=== PATIENT | female | born 1940 | race Caucasian/White ===

== ENCOUNTER 2016-09-10 13:18 | Inpatient (IN) | payer MEDICARE, OTHER ==
[~2016-09-10] VITALS: Ht 170.2 cm; Wt 94.6 kg
[~2016-09-10 13:18] MED LIST: GLUCOPHAGE1000 MG PO; SYNTHROID0.05 MG/TA PO
[2016-09-10 14:22] LABS: ADJUSTED CALCIUM 8.8 mg/dL (8.4-10.2); ALBUMIN 3.3 gm/dL (3.5-5.0); BILIRUBIN,TOTAL 0.8 mg/dL (0.0-1.0); CALCIUM 8.2 mg/dL (8.4-10.2); CREATININE, serum 1.18 mg/dL (0.52-1.25); POTASSIUM 4.1 mmol/L (3.4-5.0); TOTAL PROTEIN 6.6 gm/dL (6.4-8.2)
[2016-09-10 14:30] LABS: TROPONIN-I 0.029 ng/mL (0.000-0.034)
[2016-09-10 16:10] LABS: PH 5 (5-8); SQUAMOUS EPITHELIAL 0-2 /hpf; URINE APPEARANCE Turbid; URINE BACTERIA Moderate /hpf; URINE BILIRUBIN Negative (NEGATIVE); URINE BLOOD 1+ (NEGATIVE); URINE GLUCOSE 2+ (NEGATIVE); URINE KETONE Trace (NEGATIVE); URINE UROBILINOGEN Negative (NEGATIVE)
[2016-09-10 16:12] LABS: URINE COLOR Yellow; URINE WBC >50 /hpf
[2016-09-10 16:49] LABS: MEAN CELL VOLUME 110 fl (80.0-100.0); MEAN CORPUSCULAR HGB CONC 34 g/dl (33.0-37.0); MEAN PLATELET VOLUME 9.7 fl (7.4-10.4); PLATELET COUNT 167 K/mm3 (130-400); RED BLOOD COUNT 1.67 M/mm3 (4.10-5.30); REDCELL DISTRIBUTION WIDTH-CV 15.6 % (11.5-14.5); WHITE BLOOD COUNT 10.1 K/mm3 (4.8-10.8)
[2016-09-10 16:53] LABS: HEMATOCRIT 18.4 % (37.0-47.0); HEMOGLOBIN 6.2 g/dl (12.5-16.0); MEAN CORPUSCULAR HEMOGLOBIN 37 pg (27.0-31.0)
[2016-09-10] MEDS ORDERED: NEURONTIN400 MG/CAP PO (17:10)
[2016-09-10] MEDS ORDERED: COZAAR 50MG50 MG/TAB PO (17:12)
[2016-09-10] MEDS ORDERED: ASPIRIN 81M81 MG/TA2 PO (17:12)
[2016-09-10] MEDS ORDERED: PLAVIX 75MG TAB75 MG PO (17:12)
[2016-09-10] MEDS ORDERED: NITRO-DUR0.4 MG/PAT TD (17:13)
[2016-09-10] MEDS ORDERED: LOPRESSOR 550 MG/TAB PO (17:13)
[2016-09-10 17:57] VITALS: BP 150/60; BP 157/60; PULSE 110; TEMP 103
[2016-09-10] MEDS ORDERED: SYNTHROID0.075 MG/T PO (18:11)
[2016-09-10 18:27] LABS: BAND 6 % (0-10); METAMYELOCYTE 1 % (0-0); NEUTROPHILS 73 % (42.0-75.2); TOTAL CELLS COUNTED 100
[2016-09-10 18:28] LABS: ANISOCYTOSIS 1+; PLATELET ESTIMATE NORMAL (NORMAL)
[2016-09-10 18:31] LABS: DOHLE BODIES PRESENT; OVALOCYTES 1+; POLYCHROMASIA 2+; TEAR DROP CELLS 1+; TOXIC GRANULATION PRESENT
[2016-09-10 18:32] LABS: ADD PATHOLOGY DIFF REVIEW YES
[2016-09-10 19:30] VITALS: BP 175/80; PULSE 125; TEMP 103
[2016-09-10 22:45] VITALS: BP 133/45; PULSE 102; TEMP 101.9
[2016-09-11] VITALS (12 sets, daily range): BP systolic 122–173; BP diastolic 48–78; PULSE 75–120; TEMP 97.9–103.8
[2016-09-11 08:35] LABS: MEAN CORPUSCULAR HGB CONC 34 g/dl (33.0-37.0); MEAN PLATELET VOLUME 9.6 fl (7.4-10.4); PLATELET COUNT 141 K/mm3 (130-400); RED BLOOD COUNT 1.96 M/mm3 (4.10-5.30); REDCELL DISTRIBUTION WIDTH-CV 18.3 % (11.5-14.5); WHITE BLOOD COUNT 8.2 K/mm3 (4.8-10.8)
[2016-09-11 08:37] LABS: ADD PATHOLOGY DIFF REVIEW NO; HEMATOCRIT 20.6 % (37.0-47.0); MEAN CELL VOLUME 105 fl (80.0-100.0); MEAN CORPUSCULAR HEMOGLOBIN 36 pg (27.0-31.0)
[2016-09-11 08:45] LABS: CALCIUM 7.5 mg/dL (8.4-10.2); CREATININE, serum 1.34 mg/dL (0.52-1.25); POTASSIUM 3.6 mmol/L (3.4-5.0)
[2016-09-11 08:48] LABS: PATHOLOGY DIFF REVIEW OK
[2016-09-11 10:26] LABS: BAND 23 % (0-10); DOHLE BODIES PRESENT; METAMYELOCYTE 2 % (0-0); NEUTROPHILS 72 % (42.0-75.2); PLATELET ESTIMATE DECREASED (NORMAL); TOTAL CELLS COUNTED 100; TOXIC GRANULATION PRESENT
[2016-09-11 10:27] LABS: ANISOCYTOSIS 2+; SPHEROCYTE 2+
[2016-09-12 03:16] VITALS: BP 132/54; PULSE 78; TEMP 97.5
[2016-09-12 06:19] LABS: MEAN CELL VOLUME 107 fl (80.0-100.0); MEAN CORPUSCULAR HGB CONC 33 g/dl (33.0-37.0); MEAN PLATELET VOLUME 9.2 fl (7.4-10.4); PLATELET COUNT 131 K/mm3 (130-400); RED BLOOD COUNT 1.94 M/mm3 (4.10-5.30); REDCELL DISTRIBUTION WIDTH-CV 18.2 % (11.5-14.5); WHITE BLOOD COUNT 6.3 K/mm3 (4.8-10.8)
[2016-09-12 06:29] LABS: HEMATOCRIT 20.7 % (37.0-47.0); HEMOGLOBIN 6.9 g/dl (12.5-16.0); MEAN CORPUSCULAR HEMOGLOBIN 36 pg (27.0-31.0)
[2016-09-12 06:30] LABS: ADD PATHOLOGY DIFF REVIEW NO; CALCIUM 7.4 mg/dL (8.4-10.2); CREATININE, serum 1.14 mg/dL (0.52-1.25); POTASSIUM 3.5 mmol/L (3.4-5.0)
[2016-09-12 07:18] VITALS: BP 192/83; PULSE 87; TEMP 98.7
[2016-09-12 07:25] LABS: MAGNESIUM 1.4 mg/dL (1.6-2.3)
[2016-09-12 07:41] LABS: BAND 8 % (0-10); BASOPHIL 1 % (0-2); METAMYELOCYTE 1 % (0-0); NEUTROPHILS 76 % (42.0-75.2); PLATELET ESTIMATE NORMAL (NORMAL); TOTAL CELLS COUNTED 100
[2016-09-12 11:33] VITALS: BP 164/68; PULSE 91; TEMP 98.2
[2016-09-12 16:55] VITALS: BP 157/103; PULSE 91; TEMP 98.2
[2016-09-12 19:33] VITALS: BP 167/72; PULSE 99; TEMP 99.2
[2016-09-12 23:24] VITALS: BP 148/63; PULSE 79; TEMP 97.6
[2016-09-13 04:59] VITALS: BP 194/95; PULSE 90; TEMP 97.6
[2016-09-13 05:56] LABS: MEAN CELL VOLUME 106 fl (80.0-100.0); MEAN CORPUSCULAR HGB CONC 34 g/dl (33.0-37.0); MEAN PLATELET VOLUME 9.2 fl (7.4-10.4); PLATELET COUNT 149 K/mm3 (130-400); RED BLOOD COUNT 2.11 M/mm3 (4.10-5.30); REDCELL DISTRIBUTION WIDTH-CV 17.5 % (11.5-14.5); WHITE BLOOD COUNT 5.6 K/mm3 (4.8-10.8)
[2016-09-13 05:59] LABS: HEMATOCRIT 22.4 % (37.0-47.0); HEMOGLOBIN 7.6 g/dl (12.5-16.0); MEAN CORPUSCULAR HEMOGLOBIN 36 pg (27.0-31.0)
[2016-09-13 06:00] LABS: ADD PATHOLOGY DIFF REVIEW NO
[2016-09-13 06:05] LABS: CALCIUM 7.7 mg/dL (8.4-10.2); CREATININE, serum 1.04 mg/dL (0.52-1.25); POTASSIUM 3.2 mmol/L (3.4-5.0)
[2016-09-13 06:15] VITALS: BP 166/70
[2016-09-13 06:17] LABS: ANISOCYTOSIS 1+; BAND 28 % (0-10); NEUTROPHILS 50 % (42.0-75.2); PLATELET ESTIMATE NORMAL (NORMAL); TOTAL CELLS COUNTED 100
[2016-09-13 06:18] LABS: ROULEAUX 1+
[2016-09-13 08:40] VITALS: BP 167/83; PULSE 96; TEMP 98.6
[2016-09-13 09:22] LABS: MAGNESIUM 1.3 mg/dL (1.6-2.3)
[2016-09-13] MEDS ORDERED: LASIX 40MG TABL40 MG PO (09:58)
[2016-09-13] MEDS ORDERED: K-DUR20 MEQ PO (10:00)
[2016-09-13] MEDS ORDERED: CIPRO 500MG TA500 MG PO (10:05)
[2016-09-13] MEDS ORDERED: PROTONIX 40MG T40 MG PO (10:06)
[2016-09-13 11:40] VITALS: BP 136/57; PULSE 86; TEMP 98.3
== END 2016-09-13 13:13 | disposition home or self-care (01) | DRG 871 ==
LOC: COL.ER 13:18 → MEDICAL 16:27
PROVIDERS: Emergency Medicine; Physician Assistant
DX: A41.9 Sepsis, unspecified organism (principal); I50.31 Acute diastolic (congestive) heart failure; N39.0 Urinary tract infection, site not specified; E87.1 Hypo-osmolality and hyponatremia; E87.2 Acidosis; I11.0 Hypertensive heart disease with heart failure; E03.9 Hypothyroidism, unspecified; E11.65 Type 2 diabetes mellitus with hyperglycemia; E78.5 Hyperlipidemia, unspecified; I25.10 Atherosclerotic heart disease of native coronary artery without angina pectoris; B96.1 Klebsiella pneumoniae [K. pneumoniae] as the cause of diseases classified elsewhere; D64.9 Anemia, unspecified; Z95.5 Presence of coronary angioplasty implant and graft; Z79.4 Long term (current) use of insulin; Z85.43 Personal history of malignant neoplasm of ovary
CPT/HCPCS: 99223-AI; 99233-AI; 99239; J0696; J1650; J1815; J2405; J3475; J7030; P9016

== ENCOUNTER → 2017-01-31 | Outpatient (CLI) | payer MEDICARE, OTHER ==
[~2017-01-31] MED LIST changes: +ASPIRIN 81M81 MG/TA2 PO; +CIPRO 500MG TA500 MG PO; +COZAAR 50MG50 MG/TAB PO; +K-DUR20 MEQ PO; +LASIX 40MG TABL40 MG PO; +LOPRESSOR 550 MG/TAB PO; +NEURONTIN400 MG/CAP PO; +NITRO-DUR0.4 MG/PAT TD; +PLAVIX 75MG TAB75 MG PO; +PROTONIX 40MG T40 MG PO; +SYNTHROID0.075 MG/T PO
== END ==
LOC: MC.RAD 11:35
DX: Z12.31 Encounter for screening mammogram for malignant neoplasm of breast (principal)

== ENCOUNTER → 2017-02-13 | Outpatient (CLI) | payer MEDICARE, OTHER | LOC: COL.RAD 14:16 | DX: K43.2 Incisional hernia without obstruction or gangrene (principal) | CPT/HCPCS: Q9967 ==

== ENCOUNTER → 2017-07-24 | Outpatient (CLI) | payer MEDICARE, OTHER | LOC: COL.RAD 10:50 | DX: C57.8 Malignant neoplasm of overlapping sites of female genital organs (principal); E11.9 Type 2 diabetes mellitus without complications; Z90.49 Acquired absence of other specified parts of digestive tract; Z95.828 Presence of other vascular implants and grafts | CPT/HCPCS: Q9967 ==

== ENCOUNTER → 2017-08-12 | Outpatient (CLI) | payer MEDICARE, OTHER ==
[~2017-08-12] MED LIST changes: +ASPIRIN E.C. 8181 MG PO; +COZAAR 25MG25 MG/TAB PO; +LANTUS100 U/ML SQ; +MICRO-K 10 EXT10 MEQ PO; +NATURAL IRON65 MG PO; +NOVOLOG 100U100 U/M1 SQ; +TOPROL XL 50MG50 MG PO
== END ==
LOC: COL.RAD 12:20
DX: Z53.8 Procedure and treatment not carried out for other reasons (principal); C57.8 Malignant neoplasm of overlapping sites of female genital organs; E11.9 Type 2 diabetes mellitus without complications

== ENCOUNTER → 2018-09-08 | Outpatient (CLI) | payer MEDICARE, OTHER | LOC: COL.RAD 10:59 | DX: C57.8 Malignant neoplasm of overlapping sites of female genital organs (principal); E11.9 Type 2 diabetes mellitus without complications; Z95.9 Presence of cardiac and vascular implant and graft, unspecified; Z90.49 Acquired absence of other specified parts of digestive tract; Z90.710 Acquired absence of both cervix and uterus | CPT/HCPCS: Q9967 ==

== ENCOUNTER 2018-10-27 15:08 | Emergency (ER) | payer MEDICARE, OTHER ==
[~2018-10-27] VITALS: Ht 167.6 cm; Wt 97.7 kg
[2018-10-27] MEDS ORDERED: LASIX 20MG TABL20 MG PO (15:31)
[2018-10-27 16:28] LABS: MUCOUS Present /lpf; PH 7 (5-8); URINE APPEARANCE Clear; URINE BACTERIA None Seen /hpf; URINE BILIRUBIN Negative (NEGATIVE); URINE BLOOD Negative (NEGATIVE); URINE COLOR Yellow; URINE GLUCOSE 3+ (NEGATIVE); URINE KETONE Negative (NEGATIVE); URINE LEUKOCYTE ESTERASE Negative (NEGATIVE); URINE NITRATE Negative (NEGATIVE); URINE PROTEIN(semi-quant) 1+ (NEGATIVE); URINE RBC 0-2 /hpf; URINE UROBILINOGEN Negative (NEGATIVE); URINE WBC 0-2 /hpf
[2018-10-27 16:33] LABS: ALANINE AMINOTRANSFERASE 8 U/L (9-52); ALBUMIN 3.6 gm/dL (3.5-5.0); ALKALINE PHOSPHATASE 251 U/L (50-136); ANION GAP 8 mmol/L (7-16); AST,SGOT 23 U/L (15-37); BILIRUBIN,TOTAL 0.3 mg/dL (0.0-1.0); BLOOD UREA NITROGEN 10 mg/dL (7-17); CALCIUM 8.2 mg/dL (8.4-10.2); CARBON DIOXIDE 26 mmol/L (22-30); CHLORIDE 99 mmol/L (98-107); CREATININE, serum 0.84 (0.52-1.25); GLUCOSE 278 mg/dL (74-106); POTASSIUM 4.6 mmol/L (3.4-5.0); SODIUM 134 mmol/L (137-145); TOTAL PROTEIN 7.1 gm/dL (6.4-8.2)
[2018-10-27 16:45] LABS: TROPONIN-I < 0.012 ng/mL (0.000-0.035)
[2018-10-27 16:56] LABS: COLLECTION METHOD CLEAN CATCH
[2018-10-27 17:20] VITALS: TEMP 98.4
[2018-10-27] MEDS ORDERED: NORVASC 5MG5 MG/TAB PO (20:59)
[2018-10-27 21:01] LABS: HEMATOCRIT 28.8 % (37.0-47.0); HEMOGLOBIN 9.1 g/dl (12.5-16.0); MEAN CELL VOLUME 91 fl (80.0-100.0); MEAN CORPUSCULAR HEMOGLOBIN 29 pg (27.0-31.0); RED BLOOD COUNT 3.15 M/mm3 (4.10-5.30)
[2018-10-27 21:02] LABS: MEAN CORPUSCULAR HGB CONC 32 g/dl (33.0-37.0); PLATELET COUNT 435 K/mm3 (130-400); REDCELL DISTRIBUTION WIDTH-CV 15.9 % (11.5-14.5)
[2018-10-27 21:04] LABS: ANISOCYTOSIS 1+; BAND 2 % (0-10); LYMPHOCYTE 20 % (20.0-51.0); NEUTROPHILS 60 % (42.0-75.2); NUCLEATED RED BLOOD CELL 1 (0-6); PLATELET ESTIMATE INCREASED (NORMAL); POLYCHROMASIA 1+
[2018-10-27 21:25] VITALS: BP 163/87; PULSE 91
== END 2018-10-27 21:25 | disposition home or self-care (01) ==
LOC: COL.ER 15:08
PROVIDERS: Emergency Medicine
DX: I10 Essential (primary) hypertension (principal); E11.65 Type 2 diabetes mellitus with hyperglycemia; I25.10 Atherosclerotic heart disease of native coronary artery without angina pectoris; I25.2 Old myocardial infarction; E03.9 Hypothyroidism, unspecified; Z90.49 Acquired absence of other specified parts of digestive tract; Z95.5 Presence of coronary angioplasty implant and graft; Z90.710 Acquired absence of both cervix and uterus; Z85.43 Personal history of malignant neoplasm of ovary; Z79.82 Long term (current) use of aspirin; Z79.02 Long term (current) use of antithrombotics/antiplatelets; Z79.4 Long term (current) use of insulin
CPT/HCPCS: J1815; J7030

== ENCOUNTER → 2019-01-06 | Outpatient (CLI) | payer MEDICARE, OTHER ==
[~2019-01-06] MED LIST changes: +LASIX 20MG TABL20 MG PO; +NORVASC 5MG5 MG/TAB PO
== END ==
LOC: MHCPAIN 14:15
DX: G89.29 Other chronic pain (principal); M47.817 Spondylosis without myelopathy or radiculopathy, lumbosacral region; M53.3 Sacrococcygeal disorders, not elsewhere classified; M41.9 Scoliosis, unspecified
CPT/HCPCS: G0463

== ENCOUNTER → 2019-02-05 | Outpatient (CLI) | payer MEDICARE, OTHER | LOC: COL.RAD 12:11 | DX: Z01.812 Encounter for preprocedural laboratory examination (principal); G31.9 Degenerative disease of nervous system, unspecified; G44.89 Other headache syndrome | CPT/HCPCS: A9585 ==

== ENCOUNTER 2019-10-28 19:43 | Inpatient (IN) | payer MEDICARE, OTHER ==
[~2019-10-28] VITALS: Ht 167.6 cm; Wt 104.7 kg
[2019-10-28 21:48] VITALS: BP 131/57; PULSE 88; TEMP 97.7
[2019-10-28] MEDS ORDERED: FERROUS SU325 MG/TAB PO (22:00)
[2019-10-28] MEDS ORDERED: NORCO 325 MG-51 TAB PO (22:02)
[2019-10-28] MEDS ORDERED: LASIX 20MG TABL20 MG PO (22:03)
[2019-10-28] MEDS ORDERED: BONINE25 MG PO (22:04)
[2019-10-28] MEDS ORDERED: LOPRESSOR 550 MG/TAB PO (22:11)
[2019-10-28] MEDS ORDERED: LASIX 40MG TABL40 MG PO (22:14)
[2019-10-28] MEDS ORDERED: MICARDIS20 MG PO (22:15)
[2019-10-28] MEDS ORDERED: ZETIA 10MG TAB10 MG PO (22:15)
[2019-10-28 22:58] VITALS: BP 145/60; PULSE 88; TEMP 97.6
--- NOTE | 2019-10-28 23:29 | NUR ---
Patient arrives from [facility] at 2120 via ambulance. Patient is alert and oriented x3 with mild forgetfulness. Patient states she doesn't remember why she is here. Patient has BLE 2+ with an open blister on the left ankle. Open area is dry and reddened. No other skin issues noted. Patient's abdomen is distented, firm and tender. Normal bowel sounds noted in all quadrants. Patient seems to have a hernia of some sort in the upper center portion of the abdomen, pateint states she know about it. Patient reports no pain at this time, however did request some Tums for indegestion. Patient arrived with 20g IV in the right AC. NS started at 60 mL/hr. Patient afebrile at this time, antibiotics given as ordered. Tele and SCD on at this time. Patient asked to call for assistance when getting up, patient verbalizes understanding.
[2019-10-29 03:05] VITALS: BP 127/56; PULSE 88; TEMP 97.2
[2019-10-29 03:54] LABS: COLLECTION METHOD CLEAN CATCH
[2019-10-29 04:04] LABS: MUCOUS Present /lpf; PH 5 (5-8); SQUAMOUS EPITHELIAL 0-2 /hpf; URINE APPEARANCE Hazy; URINE BACTERIA Rare /hpf; URINE BILIRUBIN Negative (NEGATIVE); URINE BLOOD Negative (NEGATIVE); URINE COLOR Yellow; URINE GLUCOSE Negative (NEGATIVE); URINE KETONE Negative (NEGATIVE); URINE LEUKOCYTE ESTERASE Trace (NEGATIVE); URINE NITRATE Negative (NEGATIVE); URINE PROTEIN(semi-quant) Negative (NEGATIVE); URINE RBC 0-2 /hpf; URINE UROBILINOGEN Negative (NEGATIVE)
[2019-10-29 07:20] VITALS: BP 134/61; PULSE 87; TEMP 97.4
[2019-10-29 07:37] LABS: HEMATOCRIT 33.5 % (37.0-47.0); HEMOGLOBIN 10.8 g/dl (12.5-16.0); MEAN CELL VOLUME 93 fl (80.0-100.0); MEAN CORPUSCULAR HEMOGLOBIN 30 pg (27.0-31.0); MEAN CORPUSCULAR HGB CONC 32 g/dl (33.0-37.0); MEAN PLATELET VOLUME 9.2 fl (7.4-10.4); PLATELET COUNT 421 K/mm3 (130-400); REDCELL DISTRIBUTION WIDTH-CV 14.5 % (11.5-14.5)
[2019-10-29 07:48] LABS: ALBUMIN 2.5 gm/dL (3.5-5.0); CALCIUM 7.8 mg/dL (8.4-10.2); CREATININE, serum 1.41 (0.52-1.25); INR 1.1 (0.8-3.0); MAGNESIUM 1.5 mg/dL (1.6-2.3); POTASSIUM 5.1 mmol/L (3.4-5.0); PROTHROMBIN TIME 12.8 SECONDS (9.7-12.8); TOTAL PROTEIN 5.4 gm/dL (6.4-8.2)
[2019-10-29 08:17] LABS: BILIRUBIN UNCONJUGATED 0.1 mg/dL (0.0-1.1); BILIRUBIN,DIRECT 0.2 mg/dL (0.0-0.4); BILIRUBIN,TOTAL 0.3 mg/dL (0.0-1.0)
[2019-10-29 08:19] LABS: BAND 11 % (0-10); LYMPHOCYTE 8 % (20.0-51.0); NEUTROPHILS 76 % (42.0-75.2); PLATELET ESTIMATE NORMAL (NORMAL)
--- NOTE | 2019-10-29 08:43 | NUR ---
Pt awake and alert upon entry, assisted to bedside commode, no C/O pain at this time. Medications given with sip of water. Shift assessments complete, left Pt call light in reach, bed in lowest position.
[2019-10-29 10:20] LABS: PERITONEAL -POLYMORPHONUCLEAR 43.2 % (0-25); PERITONEAL FLUID RBC 1000 /mm3 (0-0)
--- NOTE | 2019-10-29 11:03 | NUR ---
I met with pt after her paracentesis. She reports that she lives independently but that has children that are easily available to her if she needs anything. Her unexpectedly in July from a brain tumor that they knew nothing about until his . This has been very difficult. 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 She reports that she is not interested in doing advanced directives at this time. She reportedly saw Dr Hinton on 10/26 according to his office notes which showed that her disease was progressing more rapidly. She reports that she doesn't need anymore chemotherapy although believes that Dr Hinton is considering a pill for her to take, if she qualifies. She does report that she enjoys gardening and her home of 25 years but feels it is time to move to an apartment that she can take care of herself--looking at move to [place]. Has 8 grandchildren and enjoys their visits. Also has a dog and a cat which are great support for her. She reports her daughter is coming to visit today. She feels well supported by her family and states they would do anything for her. I am waiting for a call back from the oncology office about her cancer status.
[2019-10-29 11:47] VITALS: BP 119/44; PULSE 73; TEMP 97.8
--- NOTE | 2019-10-29 12:12 | NUR ---
I called daughter, Nicky Rosales @ [phone] to see what the family's understanding of Lexie's cancer and general condition was. Nicky stated that they are trying to get her into [facility] to help with her medication management and general care. The family does not feel that she is able to manage living at home alone. Per Nicky, both she and her sister Chidi, who lives in [place], are both named as DPOA-HC for her mother. Pt has been dealing with stage 4 ovarian cancer for 3 1/2 years and the family is recognizing that her life will not be a whole lot longer. They would consider hospice services in the retirement as a plus. The patient is not necessarily thinking of this as an option and is able to make her own decisions at this time. Contact information was given to Nicky. Daughter did report that an oral chemotherapy drug (lintarza) had been discussed but that with their mother's non compliance with her medications and her use of alcohol--the family does not believe that an oral chemotherapy agent could be handled unless she recieves help with her medication administration. Pt has always been a very independent person and is resistant to taking help from others in her own care.
[2019-10-29 15:40] VITALS: BP 99/63; PULSE 79; TEMP 98.3
--- NOTE | 2019-10-29 16:37 | NUR ---
Human Resources Associate met with the patient and her daughter, Nicky to complete initial intake. The patient lives alone in [facility]. The patient has cane, walker and shower equipment. The patient is indepenent with ADLs. The patient's PCP is Dr. Chakraborty and patient receives medications from [facility] in . The patient has advanced directives completed and designate her daughters, Deann and Chidi. The patient was interested in sending referrals to [facility] and [facility]. Referrals faxed. [facility] will review the referral but cannot take until Friday. The patient will have to go on comfort measures and not taking any cancer treatments. POORNIMA informed Demetra from [facility] regarding the referral. SW attempted to update the patient and the patient's daughter but the patient was sleeping and the daughter was gone. Will continue to follow.
--- NOTE | 2019-10-29 19:24 | NUR ---
Pt rested in the room today, needs X1 assistance to stand, is able to use bedside commode without issue. Has had no C/O pain today. VS have remained stable.
[2019-10-29 19:37] VITALS: BP 135/46; PULSE 93; TEMP 99.2
--- NOTE | 2019-10-29 20:00 | NUR ---
Assessment complete at this time. Patient has no complaints of pain. Abdomen is distended and bilateral lower extremity edema has 2+ pitting. 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 No new concerns, will continue to monitor.
[2019-10-29 22:53] VITALS: BP 131/51; PULSE 88; TEMP 99.3
[2019-10-30] VITALS (7 sets, daily range): BP systolic 106–145; BP diastolic 43–78; PULSE 77–91; TEMP 97.7–98.6
--- NOTE | 2019-10-30 05:29 | NUR ---
Patient has had an uneventful and restful night. No complaints of pain or additional concerns.
[2019-10-30 08:19] LABS: HEMOGLOBIN 10.2 g/dl (12.5-16.0); MEAN CELL VOLUME 91 fl (80.0-100.0); MEAN CORPUSCULAR HEMOGLOBIN 29 pg (27.0-31.0); MEAN CORPUSCULAR HGB CONC 32 g/dl (33.0-37.0); PLATELET COUNT 409 K/mm3 (130-400); RED BLOOD COUNT 3.49 M/mm3 (4.10-5.30); REDCELL DISTRIBUTION WIDTH-CV 14.6 % (11.5-14.5)
[2019-10-30 08:21] LABS: HEMATOCRIT 31.9 % (37.0-47.0)
[2019-10-30 08:33] LABS: ALBUMIN 2.4 gm/dL (3.5-5.0); BILIRUBIN,TOTAL 0.2 mg/dL (0.0-1.0); CREATININE, serum 1.8 (0.52-1.25); MAGNESIUM 2.4 mg/dL (1.6-2.3); POTASSIUM 4.5 mmol/L (3.4-5.0)
[2019-10-30 09:09] LABS: EOSINOPHIL 1 % (0-4); LYMPHOCYTE 13 % (20.0-51.0); NEUTROPHILS 80 % (42.0-75.2)
[2019-10-30 09:11] LABS: PLATELET ESTIMATE INCREASED (NORMAL)
[2019-10-30 09:13] LABS: HYPOCHROMIA 1+
--- NOTE | 2019-10-30 09:21 | NUR ---
Pt awake and alert upon entry, no C/O pain at this time, talkative. Shift assessments complete, left Pt call light in reach, bed in lowest position.
--- NOTE | 2019-10-30 18:35 | NUR ---
Pt resting in the room, no C/O pain throughout the day, VS have remained stable.
--- NOTE | 2019-10-30 20:00 | NUR ---
Assessment complete at this time. Patient has no complaints of pain. 2+ pitting edema is present on bilat lower extremities; shins are reddened and slightly warm. BP is 109/48 at this time and scheduled metoprolol is held. Patient's abdomen is distended and firm. Will continue to monitor.
[2019-10-31] VITALS (7 sets, daily range): BP systolic 109–128; BP diastolic 44–66; PULSE 83–106; TEMP 98–99
[2019-10-31 08:01] LABS: BASO % 0.2 % (0.0-2.0); EOS # 0.1 (0.0-0.7); GRAN # 8.6 (1.4-6.5); GRAN % 72.6 % (42.2-75.2); HEMOGLOBIN 10.7 g/dl (12.5-16.0); LYMPH # 1.6 (1.2-3.4); LYMPH % 13.5 % (20.0-51.0); MEAN CELL VOLUME 91 fl (80.0-100.0); MEAN CORPUSCULAR HEMOGLOBIN 29 pg (27.0-31.0); MEAN CORPUSCULAR HGB CONC 32 g/dl (33.0-37.0); MEAN PLATELET VOLUME 9.2 fl (7.4-10.4); MONO # 1.4 (0.1-0.6); MONO % 11.9 % (1.7-9.3); PLATELET COUNT 443 K/mm3 (130-400); RED BLOOD COUNT 3.68 M/mm3 (4.10-5.30); REDCELL DISTRIBUTION WIDTH-CV 14.6 % (11.5-14.5)
[2019-10-31 08:03] LABS: HEMATOCRIT 33.6 % (37.0-47.0)
[2019-10-31 08:12] LABS: CALCIUM 6.7 mg/dL (8.4-10.2); CREATININE, serum 2.35 (0.52-1.25); POTASSIUM 4.5 mmol/L (3.4-5.0)
--- NOTE | 2019-10-31 09:40 | NUR ---
Pt awake and alert upon entry, no C/O pain at this time. Shift assessments complete, left Pt call light in reach, bed in lowest position.
--- NOTE | 2019-10-31 19:04 | NUR ---
Pt resting in the room today, no C/O pain throughout the day, has had several loose stools today. VS have remained stable.
--- NOTE | 2019-10-31 22:00 | NUR ---
Pt assessment completed and documented. Pt resting in bed with eyes closed when entering room. Pt alert and oriented x4. Denies pain. IVF infusing per orders to right ac IV site. Fall precautions in place. Bed alarm on. Pt denies any other needs at this time. Call light within reach. Will continue to monitor.
[2019-11-01 03:31] VITALS: BP 126/52; PULSE 83; TEMP 98.7
--- NOTE | 2019-11-01 05:19 | NUR ---
Pt has rested well in bed overnight. No complaints of pain. IVF infusing per orders. PT denies any other needs. Call light within reach. Fall precautions in place. Bed alarm on.
[2019-11-01 06:05] LABS: BASO % 0.2 % (0.0-2.0); EOS # 0.2 (0.0-0.7); EOS % 1.3 % (0-4.0); GRAN # 9.4 (1.4-6.5); GRAN % 75.2 % (42.2-75.2); LYMPH # 1.4 (1.2-3.4); LYMPH % 11.1 % (20.0-51.0); MEAN CELL VOLUME 91 fl (80.0-100.0); MEAN CORPUSCULAR HEMOGLOBIN 30 pg (27.0-31.0); MEAN CORPUSCULAR HGB CONC 33 g/dl (33.0-37.0); MEAN PLATELET VOLUME 8.8 fl (7.4-10.4); MONO # 1.4 (0.1-0.6); MONO % 11.6 % (1.7-9.3); PLATELET COUNT 457 K/mm3 (130-400); REDCELL DISTRIBUTION WIDTH-CV 14.3 % (11.5-14.5)
[2019-11-01 06:13] LABS: SODIUM 126 mmol/L (137-145)
[2019-11-01 06:15] LABS: HEMATOCRIT 33.8 % (37.0-47.0)
[2019-11-01 06:16] LABS: ALBUMIN 2.5 gm/dL (3.5-5.0); BILIRUBIN,TOTAL 0.2 mg/dL (0.0-1.0); CALCIUM 6.5 mg/dL (8.4-10.2); CREATININE, serum 2.39 (0.52-1.25); POTASSIUM 4.5 mmol/L (3.4-5.0); TOTAL PROTEIN 5.5 gm/dL (6.4-8.2)
[2019-11-01 06:17] LABS: CREATININE, serum 2.39 (0.52-1.25)
--- NOTE | 2019-11-01 09:22 | NUR ---
Assisted to bedside commode, pt. urinated. Pt. c/o back pain and requested to be adjusted in bed. Pt. was adjusted and said, "That is much better". Call button is in place. Will continue to monitor.
--- NOTE | 2019-11-01 09:25 | NUR ---
Initial visit; Patient thanked Toolmaker Grade Three for looking in on her and offering God's blessings.
--- NOTE | 2019-11-01 10:10 | NUR ---
Treatment team rounded on patient this morning and Dr Mederos talked with pt about her current condition and that she is not likely to get a lot better due to her advanced cancer, liver issues and kidney function decline. Pt again seemed quite surprised but did listen to Dr Mederos who presented continuing aggressive care vs comfort care. Pt is aware that many of her issues will not go away and that aggressive care would have her spending more time in the hospital for more treatment without a true improvement in her quality of life. I stayed and talked with pt after treatment team left. She asked if her girls knew what Dr Mederos had told her and I replyed yes. I reinforced that I had talked with her daughter Chidi this morning and her daughter Nicky on Friday. She is aware that her daughters have been looking at [facility] and did report that this would be her choice. I called Chidi after I left the bedside and went over with her what was discussed. Her mother was very stoic during the conversations but did asked if their was something we could do so she would in her sleep like her had done. I did reinforce that we could keep her comfortable. Pt stated she wanted to go to sleep now. I told her was not something that we control. Chidi will talk with her sister Nicky and they have our number if further conversation is needed.
[2019-11-01 12:00] VITALS: BP 122/66; PULSE 72; TEMP 98.4
--- NOTE | 2019-11-01 13:59 | NUR ---
Gas Shovel Operator attended clinical rounds with the team. Hospitalist discussed patient's prognosis and goals of care. Following rounds, POORNIMA contacted Eva at [facility] and Demetra at [facility] then faxed referrals. Eva advised that they have been working on paperwork with the family. Eva states that they would not be able to accept until Friday or . Eva also requested a rapid swab 24 hour before discharge. POORNIMA advised that patient was swabbed yesterday morning and Eva requested those results. Eva also advised that if patient discharges on Friday, she will need to be picked up at 0900. POORNIMA followed up with patient's daughter, Nicky who advised they spoke with their mom and they would like to look into the [facility]. POORNIMA contacted Maylin, [facility] and faxed referral. Maylin advised that they are full right now but they anticipate that may change soon. Maylin states patient is first on their wait list. POORNIMA updated [facility] Pall[facility] RN and will continue to follow.
--- NOTE | 2019-11-01 14:03 | NUR ---
Pt. c/o back pain. Requested ice pack, ice pack placed. Will continue to monitor pain.
--- NOTE | 2019-11-01 14:20 | NUR ---
Recieveid call from [facility] that family was interested in looking at Their facility for hospice services for their mother. This would be an excellent choice. I did call and leave message for Chidi.
--- NOTE | 2019-11-01 16:06 | NUR ---
Pt is asleep at this time. Her daughter, Nicky, is not here yet. Family is still wanting to talk with pt again before making further decisions but as previously noted, they are considering [facility] and [facility] for hospice care for their mother. Will follow up in am.
[2019-11-01 17:00] VITALS: BP 128/55; PULSE 85; TEMP 98.5
[2019-11-01 19:41] VITALS: BP 115/57; PULSE 87; TEMP 98.4
[2019-11-01 23:57] VITALS: BP 113/56; PULSE 78; TEMP 98.1
[2019-11-02 03:57] VITALS: BP 121/56; PULSE 68; TEMP 97.9
--- NOTE | 2019-11-02 04:25 | NUR ---
This nurse and Careeta RN, assisted patient to bedside commode. Bed sheets, pillow case, linens, patient's gown and briefs were changed. Assisted back to bed. Patient states her right leg felt much better now. She refuses pain medicine and states pain score right now is at 5/10 since she just moved from bed.
--- NOTE | 2019-11-02 06:00 | NUR ---
Morning meds given to patient. Asked her again about her pain on her right leg and said that she's okay now and she doesn't need any pain meds. No other complains noted.
[2019-11-02 08:07] VITALS: BP 145/73; PULSE 80; TEMP 97.4
[2019-11-02 08:17] LABS: BASO % 0.2 % (0.0-2.0); EOS # 0.2 (0.0-0.7); EOS % 1.6 % (0-4.0); GRAN # 9.4 (1.4-6.5); GRAN % 78.2 % (42.2-75.2); HEMOGLOBIN 11.1 g/dl (12.5-16.0); LYMPH # 0.9 (1.2-3.4); MEAN CELL VOLUME 91 fl (80.0-100.0); MEAN CORPUSCULAR HEMOGLOBIN 29 pg (27.0-31.0); MEAN CORPUSCULAR HGB CONC 32 g/dl (33.0-37.0); MEAN PLATELET VOLUME 8.9 fl (7.4-10.4); MONO # 1.5 (0.1-0.6); MONO % 12.2 % (1.7-9.3); PLATELET COUNT 496 K/mm3 (130-400); RED BLOOD COUNT 3.81 M/mm3 (4.10-5.30); REDCELL DISTRIBUTION WIDTH-CV 14.3 % (11.5-14.5)
[2019-11-02 08:19] LABS: HEMATOCRIT 34.5 % (37.0-47.0)
[2019-11-02 08:29] LABS: ALBUMIN 2.4 gm/dL (3.5-5.0); CALCIUM 6.5 mg/dL (8.4-10.2); CREATININE, serum 2.04 (0.52-1.25); PHOSPHOROUS 3.3 mg/dL (2.5-4.5); POTASSIUM 4.5 mmol/L (3.4-5.0)
--- NOTE | 2019-11-02 09:59 | NUR ---
I talked with both daughters, Karolyn, by phone this morning on a conference call to clarify what their plan was with their mother after they talked with her last night. Both daughters were very clear that they have selected [facility] as their first choice, they are aware that she is first on the waiting list for [facility], and would like to have her transferred there whenever there is an opening. When Dr Mederos talked with the patient herself, that is also clearly her wish so that her family can visit. We are talking about a pleurx drain placement for her ascites if radiology feels that this can be done. I did review this with the patient and will call her daughters when it is more definite. Pt is now a DNR. She was agreeable to continuing supportive care until she can transition to [facility].
[2019-11-02 12:00] VITALS: BP 154/80; PULSE 96; TEMP 98.4
--- NOTE | 2019-11-02 12:01 | NUR ---
Fish Header spoke with patient's daughter, Nicky who advised she and her sister, Chidi talked with their mom last night and are all in agreement for discharge to the [facility]. POORNIMA contacted Maylin, Residential Support Worker at [facility] who advised they are still full at this time. POORNIMA collaborated with clinical team and patient will not discharge today. POORNIMA will continue to follow up with Maylin. POORNIMA contacted Eva at [facility] who advised the family returned paperwork and told them they want to go to [facility]. POORNIMA will continue to follow.
--- NOTE | 2019-11-02 13:57 | NUR ---
I contacted daughter Chidi by phone to advise her of the pleurx drain placement planned for the morning to help manage ascites and promote comfort. She reported that she had heard of them before and is glad that this is available. She will advise her sister Nicky of this as well and I will leave a pleurx folder in pt's room for the family to review and also advised that can find video on Youtube as well. Pt is able to sign her own consent.
--- NOTE | 2019-11-02 14:23 | NUR ---
Comfort quilt provided with explanation and information folder regarding Pleurx drain placed in room. Pt reports more back pain and is asking for pain medication.
[2019-11-02 16:00] VITALS: BP 130/54; PULSE 79; TEMP 98.7
--- NOTE | 2019-11-02 19:10 | NUR ---
Received report from Julia. Seen patient awake, lying in bed. She denies pain right now. She says the medicines given to her awhile ago worked pretty well and she doesn't have pain anymore. Instructed patient she's NPO by midnight in preparation for her procedure. She verbalizes understanding.
--- NOTE | 2019-11-02 19:55 | NUR ---
PT HAD UNEVENTFUL DAY. HAD C/O PAIN MOST OF THE DAY, WAS GIVEN PAIN MEDICATIONS WHEN ABLE TO, HOWEVER DURING MORNING ROUNDS PATIENT MADE IT CLEAR TO DR. CALDERÓN SHE DID NOT WANT TO BE COMFORT CARE UNTIL SHE GOT TO HOSPICE, AND THAT WHILE SHE WAS IN THE HOSPITAL SHE WANTED EVERYTHING DONE TO HELP HER. WHEN THE PATIENT'S DAUGHTER ARRIVED, THE PATIENT AND DAUGHTER CALLED THIS RN INTO THE ROOM TO STATE THAT SHE THOUGHT THE PATIENT WAS ON COMFORT CARE. THIS RN INFORMED HER THAT DUE TO THE CONVERSATION HAD WITH THE DOCTOR, THAT HER MOTHER WAS NOT COMFORT CARE, AND A FULL CODE AT THIS TIME. CONTACTED ARABELLA WRIGHT, AND SHE CAME IN TO TALK TO THE PATIENT AND DAUGHTER, AND THEY CHANGED THE PAIN MANAGEMENT FOR THE PATIENT TO INCREASE THE AMOUNT GIVEN, AND THE FREQUENCY. THE PATIENT AND THE DAUGHTER WERE CONTENT WITH THAT, AND REPORT WAS GIVEN TO NIGHT RN.
[2019-11-02 20:00] VITALS: BP 135/48; PULSE 80; TEMP 98
[2019-11-02 23:46] VITALS: BP 115/50; PULSE 74; TEMP 98.7
[2019-11-03 04:00] VITALS: BP 114/46; PULSE 72; TEMP 98.3
--- NOTE | 2019-11-03 06:05 | NUR ---
Patient didn't complain of pain the whole night until this morning she had a right leg pain of 8/10. Morphine IV given. Maintained on NPO for her procedure.
[2019-11-03 07:31] LABS: INR 1.1 (0.8-3.0); PROTHROMBIN TIME 12.6 SECONDS (9.7-12.8)
[2019-11-03 08:36] VITALS: BP 135/52; PULSE 81; TEMP 98.3
--- NOTE | 2019-11-03 10:12 | NUR ---
Assessment completed, alert/oriented, vital signs stable, reports mild pain to abd and right upper leg, 2+ edema to BLE, pedal pulses are palpable, no resp. difficulty, lungs dminished in bases with some fine crackles/ CTA in upper lobes, she is scheudled to have a pleurex drain placed with IR somtimne today, consent is signed, she is NPO for now, social work is working on discharge planning, denies other needs at this time
[2019-11-03 12:43] VITALS: BP 108/49; PULSE 63; TEMP 98.2
--- NOTE | 2019-11-03 13:00 | NUR ---
going down to clinical laboratory technologist for Pleurx placement at this time
--- NOTE | 2019-11-03 13:53 | NUR ---
I spoke with Chidi today. She is aware that Lexie is having a pleurx drain placed today for ascites control. Chidi tells me that they are now considering [facility] for their mother since [facility] does not have an opening yet. She and her sister Nicky are dealing with some guilt about putting mom in a facility but seems comfortable with the decision to pursue hospice careas no real cancer treatments are available. Support provided.
--- NOTE | 2019-11-03 14:45 | NUR ---
Patient arrived back to the floor from woods laborer at this time, she is drowsy but arousable, vital signs stable, denies pain, Pleurx cath insertion site dressing is C/D/I, will continue to monitor
[2019-11-03 16:09] VITALS: BP 114/80; PULSE 71; TEMP 97.6
--- NOTE | 2019-11-03 16:16 | NUR ---
Fold Skiver contacted Maylin at [facility] and they still do not have a bed. SW contacted patient's daughter, Nicky to talk about an alternative placement. Patient is having a pleurx drain placed today but Hospitalist advised patient could be ready for discharge tomorrow. Nicky spoke with her sister, Chidi and returned SW call. Nicky reports they would like to possibly look into [place] SNFs but would want pricing and information on visitation. SW contacted Avtar at [facility] and left a message. SW contacted Demetra at [facility], Len at [facility], and Nayeli at [facility]. SW called Nicky back and provided pricing and visitation policies. Nicky states she and Chidi will talk to their mother marixa but may end up wanting to go to [facility]. Nicky did not want referrals sent until she could speak with her sister and mother. Referral had previously been sent to [facility] and they had been working with the family on paperwork. Nicky states [facility] can not admit over the weekend. Nicky advised her sister Chidi looked into [facility] in [place] but they do not take fdc placements. POORNIMA updated HARRIET Granados that patient and family to discuss second preference if [facility] continues to be full. POORNIMA will continue to follow.
[2019-11-03 19:04] VITALS: BP 134/52; PULSE 83; TEMP 98
--- NOTE | 2019-11-03 20:30 | NUR ---
Initial shift assessment done- denies pain at this time, pleurex drain to right side intact- dressing intact, clamped. Tele on, no requests, does not want a HS snack tonight. Alert/oriented,, Did get up to BSC with 2 assists at shift change tonight-
[2019-11-03 23:15] VITALS: BP 134/51; PULSE 76; TEMP 99
[2019-11-04] VITALS (7 sets, daily range): BP systolic 124–154; BP diastolic 48–89; PULSE 69–92; TEMP 97.6–98.1
--- NOTE | 2019-11-04 06:07 | NUR ---
Quiet night-- no requests, denies pain- pleurex drain site intact, clamped.
--- NOTE | 2019-11-04 09:42 | NUR ---
Pt was eating breakfast this am during my visit. She stated it tasted good and was enjoying it. She reports that she has talked with her daughters about where to go because some places don't have a vacancy. nutrition services manager has spoken with both daughters and is trying to find even a short term alternative for Lexie to go. Family is looking at a Medicare appeal. I offered to drain some fluid from pt's abdomen through her new pleurx drain but she stated she was fine and didn't need that done today. Will continue to follow along with this case. Unfortuneately, we do not know when [facility] will have a vacancy.
--- NOTE | 2019-11-04 13:36 | NUR ---
Primary nurse was assisted with [id number] patient care by [employer] student Zeina Grajeda and [employer] instructor Yoselin Benavides RN-.
--- NOTE | 2019-11-04 14:17 | NUR ---
Patient is ready for discharge when a location to accept can be found. [facility] still has no vacancies--even with Lexie being first on their waiting list. Amanda WALSH and I called Chidi and spoke with her about information she had requested regarding local nursing [facility] as temporary locations. She will talk with the [facility] about more questions and then should let us know what their decision is. Certainly we will advise at any time there is opening at [facility].
--- NOTE | 2019-11-04 16:34 | NUR ---
Access Assoc spoke with patient's daughter, Chidi about discharge plan. Chidi states that [facility] cannot take until next week and also advised that [facility] would not accept if chcf plan was to get to the [facility]. Chidi inquired about process to appeal discharge with Medicare and POORNIMA provided information on process. Chidi reports they are agreeable to have patient discharge to a [facility] if the chcf plan can still be to transition to the [facility]. Chidi is agreeable to have referrals sent to [facility], [facility], [facility], and [facility]. [facility] and [facility] both declined. POORNIMA and [facility] Palliative RN called Chidi to provide update and check in. Chidi advised at this [facility] and they could afford private pay short term until [facility] has an opening. Chidi to call Demetra at [facility]. POORNIMA followed up with Demetra at [facility] who advised they can accept tomorrow with an second negative COVID swab. POORNIMA collaborated with Scrap Charger, Hospitalist, and RN to have patient swabbed again. Results should arrive tomorrow. POORNIMA provided update to Demetra who states she has talked with Chidi and plan would be to accept tomorrow. POORNIMA met with patient to review discharge plan. Patient would like to get to [facility] as soon as she can but is agreeable with discharge plan to [facility]. POORNIMA read IM form aloud to patient who verbalized understanding and gave SW permission to sign on her behalf. POORNIMA placed form on chart and provided copy to patient. POORNIMA left a message for Chidi and will continue to follow.
--- NOTE | 2019-11-04 19:39 | NUR ---
Pt assessment completed and documented. Pt resting in bed watching television at this time. Pt alert and oriented x4. Denies pain. Drain to RUQ intact with minial drainage noted to dressing. Pt denies any other needs at this time. Call light within reach. Bed alarm on. Will continue to monitor.
[2019-11-05 03:42] VITALS: BP 108/88; PULSE 73; TEMP 97.6
--- NOTE | 2019-11-05 05:00 | NUR ---
Pt has been resting well overnight in bed. Pt refused scheduled HS levemir due to not eating much dinner and having hs BG of 159. Pt stated she was ok with taking scheduled novolog at that time to treat BG of 159. Pt denied pain overnight. Pt denies any other needs. Call light within reach. Bed alarm on.
--- NOTE | 2019-11-05 07:19 | NUR ---
Report given to MATEO Patel
[2019-11-05 07:21] VITALS: BP 134/57; PULSE 97; TEMP 98.6
[2019-11-05 07:49] VITALS: BP 145/55; PULSE 94; TEMP 97.6
[2019-11-05] MEDS ORDERED: RT ALBUTER2.5 MG/0.5 IH (09:11)
[2019-11-05] MEDS ORDERED: TYLENOL 325MG325 MG PO (09:12)
[2019-11-05] MEDS ORDERED: ATIVAN 0.50.5 MG/TAB PO (09:12)
[2019-11-05] MEDS ORDERED: ROXANOL 20MG20 MG/ML PO (09:12)
[2019-11-05] MEDS ORDERED: ANTACID500 M1 PO (09:13)
[2019-11-05] MEDS ORDERED: MIRALAX PA17 GM/Dose PO (09:13)
[2019-11-05] MEDS ORDERED: NOVOLOG 100U100 U/M1 SQ (09:14)
[2019-11-05] MEDS ORDERED: ZOFRAN ODT4 MG PO (09:15)
[2019-11-05] MEDS ORDERED: TRANSDERM-0.5 MG/21 TD (09:15)
[2019-11-05] MEDS ORDERED: ARTIFICIAL TEAR15 M7 OP (09:16)
[2019-11-05] MEDS ORDERED: CAPSAICIN0.025% TP (09:17)
--- NOTE | 2019-11-05 09:49 | NUR ---
Assessment complete. Patient resting in bed eyes closed at this time. States she is comfortable at this time. No IV access, patient discharging today. BLE edema is present. Patient denies other needs at this time. Will continue to monitor. Call light is in reach.
--- NOTE | 2019-11-05 11:31 | NUR ---
Pleurx drain offered and accepted by pt. Brief instruction through process. Clear Yellow fluid was drained from pleurx drain on pt's right lower abdomen, 500ml without issue. Pt denied pain and seemed quite surprised about the volume of fluid in drainage container. Insertion sites appear without redness or drainage. Product procedure followed without incident.
--- NOTE | 2019-11-05 11:42 | NUR ---
Patient decided to allow Sharee Maxwell RN to drain her pleurx drain on the right side of her abdomen. She tolerated this very well. 500 ml were drained, site was re dressed with a fresh dressing. Patient denies pain at the site. No other needs at this time. Patient is aware to call for help. Call light is in reach. Bed alarm is set.
[2019-11-05 12:47] VITALS: BP 130/55; PULSE 77; TEMP 98.1
--- NOTE | 2019-11-05 13:55 | NUR ---
Primary nurse was assisted with [id number] patient care by [employer] [facility] Zeina Dawson and [employer] instructor Yoselin Benavides RN-BC.
--- NOTE | 2019-11-05 15:41 | NUR ---
L[employer]older spoke with patient's daughter, Chidi who confirmed plan is still for [facility] today. SW attended clinical rounds with the team and patient ready to be discharged today. POORNIMA collaborated with Hospitalist, RN, and Court Clerk to order rapid swab as patient's swab from yesterday is still pending. Once results were obtained, POORNIMA faxed results and discharge orders to Demetra at [facility]. POORNIMA collaborated with MATEO Whipple who advised patient has been able to sit up in bed and has been able to use the bedside commode so patient would be appropriate for wheelchair transport. POORNIMA collaborated with [facility] to set transport time for [id number]. POORNIMA provided transport time to RN, patient, and patient's daughter. All are in agreement with discharge plan. No additional needs at this time. Patient to discharge to [facility], [facility], longterm care.
[2019-11-05 15:45] VITALS: BP 130/55; PULSE 77; TEMP 98.1
--- NOTE | 2019-11-05 16:45 | NUR ---
Patient left the floor at this time. All belongs were transferred with patient. No further concerns.
== END 2019-11-05 16:45 | DRG 754 ==
LOC: MEDICAL 19:43
PROVIDERS: Internal Medicine; Physician Assistant; ADMIT Student in an Organized Health Care Education/Training Program
PROC: 0W9G3ZZ Drainage of Peritoneal Cavity, Percutaneous Approach (ICD-10-PCS; 2019-10-29)
PROC: 0JH83XZ Insertion of Tunneled Vascular Access Device into Abdomen Subcutaneous Tissue and Fascia, Percutaneous Approach (ICD-10-PCS; principal; 2019-11-03)
DX: C56.9 Malignant neoplasm of unspecified ovary (principal); K65.2 Spontaneous bacterial peritonitis; N17.9 Acute kidney failure, unspecified; I50.32 Chronic diastolic (congestive) heart failure; E87.1 Hypo-osmolality and hyponatremia; E87.2 Acidosis; R18.0 Malignant ascites; K74.60 Unspecified cirrhosis of liver; Z51.5 Encounter for palliative care; I11.0 Hypertensive heart disease with heart failure; I25.10 Atherosclerotic heart disease of native coronary artery without angina pectoris; E03.9 Hypothyroidism, unspecified; E11.40 Type 2 diabetes mellitus with diabetic neuropathy, unspecified; E11.649 Type 2 diabetes mellitus with hypoglycemia without coma; D53.9 Nutritional anemia, unspecified; D47.3 Essential (hemorrhagic) thrombocythemia; K59.00 Constipation, unspecified; Z79.4 Long term (current) use of insulin; Z87.891 Personal history of nicotine dependence; Z95.5 Presence of coronary angioplasty implant and graft
CPT/HCPCS: 99222-AI; 99232-AI; 99233-AI; 99239; A9284; J0696; J1644; J1815; J2250; J2270; J3010; J3475; J7030

== ENCOUNTER → 2019-11-12 | Outpatient (CLI) | payer MEDICARE, OTHER ==
[~2019-11-12] MED LIST changes: +ANTACID500 M1 PO; +ARTIFICIAL TEAR15 M7 OP; +ATIVAN 0.50.5 MG/TAB PO; +BONINE25 MG PO; +CAPSAICIN0.025% TP; +FERROUS SU325 MG/TAB PO; +MICARDIS20 MG PO; +MIRALAX PA17 GM/Dose PO; +NORCO 325 MG-51 TAB PO; +ROXANOL 20MG20 MG/ML PO; +RT ALBUTER2.5 MG/0.5 IH; +TRANSDERM-0.5 MG/21 TD; +TYLENOL 325MG325 MG PO; +ZETIA 10MG TAB10 MG PO; +ZOFRAN ODT4 MG PO
== END ==
LOC: ZCOL.LAB 17:52
DX: C56.2 Malignant neoplasm of left ovary (principal); E11.42 Type 2 diabetes mellitus with diabetic polyneuropathy; N39.0 Urinary tract infection, site not specified; Z20.828 Contact with and (suspected) exposure to other viral communicable diseases